=== PATIENT | female | born 1955 | race Caucasian/White ===

== ENCOUNTER 2017-05-01 20:18 | Observation (INO) | payer MEDICAID ==
[2017-05-01] MEDS ORDERED: Morphine 4 MG/ML VIAL ONE (21:02)
--- NOTE | 2017-05-01 21:04 | C.PDOC ---
History Of Present Illness 61 y/o F c PMHx kidney stones p/w R flank pain x 1 week. Patient has known kidney stone on R and is scheduled for stent placement by Urology tomorrow but pain has been intractible at home so came to ED. Denies fever, vomiting, diarrhea, dyspnea. Time Seen by Provider: 05/01/17 20:33 Chief Complaint (Nursing): Female Genitourinary Past Medical History Vital Signs: Last Vital Signs Temp 98 F 05/01/17 20:25 Pulse 90 05/01/17 20:25 Resp 18 05/01/17 20:25 BP 126/83 05/01/17 20:25 Pulse Ox 98 05/01/17 21:04 - Medical History PMH: Arthritis, Back Problems, HTN, Hyperlipidemia, Kidney Stones Family History: States: No Known Family Hx - Social History Hx Alcohol Use: No Hx Substance Use: No - Immunization History Hx Tetanus Toxoid Vaccination: No Hx Influenza Vaccination: Yes Hx Pneumococcal Vaccination: No Review Of Systems Except As Marked, All Systems Reviewed And Found Negative. Constitutional: Negative for: Fever Cardiovascular: Negative for: Chest Pain Physical Exam - Physical Exam Appears: In Acute Distress (secondary to pain) Skin: No Rash Head: Normacephalic Eye(s): bilateral: PERRL Oral Mucosa: Moist Neck: Supple Cardiovascular: Rhythm Regular Respiratory: Normal Breath Sounds Gastrointestinal/Abdominal: Soft, No Tenderness, No Distention Back: CVA Tenderness (R) Extremity: No Tenderness, No Swelling Pulses: Left Radial: Normal, Right Radial: Normal Neurological/Psych: Normal Speech, Normal Cognition Gait: Steady ED Course And Treatment - Laboratory Results Result Diagrams: 05/01/17 21:00 05/01/17 21:00 O2 Sat by Pulse Oximetry: 98 Medical Decision Making Medical Decision Making: Pain intractible. Dr. Mar will admit to observation for intractible pain. Dr. Schmid consult placed for stent placement. Disposition - Disposition Referrals: Giovanni Mar MD [Staff Provider] - Disposition: HOSPITALIZED Disposition Time: 21:30 Condition: FAIR Forms: [facility] (Dutch) - Clinical Impression Clinical Impression: Nephrolithiasis, Intractable pain
[2017-05-01 21:06] LABS: BASO # 0.1 K/uL (0.0-0.2); BASO % 0.8 % (0.0-2.0); EOS # 0.2 K/uL (0.0-0.7); EOS % 2.7 % (0.0-4.0); HEMATOCRIT 35.6 % (34.0-47.0); LYMPH # 3.1 K/uL (1.0-4.3); LYMPH % 34.5 % (20.0-40.0); MEAN CELL VOLUME 81.9 fL (81.0-99.0); MEAN CORPUSCULAR HEMOGLOBIN 27.6 pg (27.0-31.0); MEAN CORPUSCULAR HGB CONC 33.7 g/dL (33.0-37.0); MEAN PLATELET VOLUME 7.4 fL (7.2-11.7); MONO # 0.5 K/uL (0.0-0.8); MONO % 5.6 % (0.0-10.0); RED CELL DISTRIBUTION WIDTH 14.1 % (11.5-14.5); WHITE BLOOD COUNT 8.9 K/uL (4.8-10.8)
[2017-05-01 21:14] LABS: INR 1.2
[2017-05-01 21:15] LABS: CHLORIDE 105 mmol/L (98-107)
[2017-05-01 21:16] LABS: SODIUM 138 mmol/L (132-148)
[2017-05-01 21:18] LABS: ALB/GLOB RATIO 1.2 (1.0-2.1); AST/SGOT 22 U/L (14-36); BILIRUBIN,TOTAL 0.3 mg/dL (0.2-1.3); BLOOD UREA NITROGEN 13 mg/dL (7-17); CARBON DIOXIDE 26 mmol/L (22-30); GFR AFRICAN-AMERICAN > 60; TOTAL PROTEIN 6.9 g/dL (6.3-8.3)
[2017-05-01 21:19] LABS: ALKALINE PHOSPHATASE 66 U/L (38-126); ALT/SGPT 34 U/L (9-52); GLUCOSE,RANDOM 192 mg/dL (65-105)
[2017-05-01 21:34] LABS: RBC URINE 4 /hpf (0-3); URINE BILIRUBIN NEGATIVE (NEGATIVE); URINE BLOOD NEGATIVE (NEGATIVE); URINE COLOR Yellow (YELLOW); URINE GLUCOSE (UA) 3+ mg/dL (Normal); URINE KETONE NEGATIVE (NEGATIVE); URINE LEUKOCYTE ESTERASE 1+ Leu/uL (Negative); URINE PROTEIN NEGATIVE (NEGATIVE); URINE UROBILINOGEN NORMAL mg/dL (0.2-1.0); WBC URINE 25 /hpf (0-5)
[2017-05-02] MEDS: (Novolin R) Insulin Human Regular 100 units/ml vial SC SCH ×4 (07:46→22:01)
[2017-05-02] MEDS: Multiple Vitamins Tab PO SCH (09:14)
[2017-05-02] MEDS ORDERED: Enoxaparin 40 mg Syringe SC SCH (10:00)
[2017-05-02] MEDS ORDERED: Propofol 10 mg/ml Inj (20 ML) ONE (14:03)
[2017-05-02] MEDS ORDERED: Midazolam 2 MG/2 ML VIAL ONE (14:03)
[2017-05-02] MEDS ORDERED: HYDROmorphone 0.5 mg/0.5 ml ISec IVP PRN (14:42)
--- NOTE | 2017-05-02 15:15 | CP.PCM.HP ---
History of Present Illness - History of Present Illness History of Present Illness: CC : right flank pain x 1 week HPI: 61 y/o ge[place]ian F c PMHx kidney stones p/w R flank pain x 1 week along with dysuria, anorexia, malsie, fatigue, nausea.. Patient has known kidney stone on R and is scheduled for stent placement by Urology tomorrow but pain has been intractible at home so came to ED. Denies fever, vomiting, diarrhea, dyspnea Pt was seen in [facility] and was discharged then she had pain again and came back Present on Admission - Present on Admission Any Indicators Present on Admission: Yes Review of Systems - Review of Systems Systems not reviewed;Unavailable: Acuity of Condition - Constitutional Constitutional: Fatigue, Lethargy, Malaise, Weakness - EENT Eyes: absent: As Per HPI, Blind Spots, Blurred Vision, Change in Vision, Decreased Night Vision, Diplopia, Discharge, Dry Eye, Exophthalmos, Floaters, Irritation, Itchy Eyes, Loss of Peripheral Vision, Pain, Photophobia, Requires Corrective Lenses, Sees Flashes, Spots in Vision, Tunnel Vision, Other Visual Disturbances, Loss of Vision, Other Nose/Mouth/Throat: absent: As Per HPI, Epistaxis, Nasal Congestion, Nasal Discharge, Nasal Obstruction, Nasal Trauma, Nose Pain, Post Nasal Drip, Sinus Pain, Sinus Pressure, Bleeding Gums, Change in Voice, Dental Pain, Dry Mouth, Dysphagia, Halitosis, Hoarsness, Lip Swelling, Mouth Lesions, Mouth Pain, Odynophagia, Sore Throat, Throat Swelling, Tongue Swelling, Facial Pain, Neck Pain, Neck Mass, Other - Breasts Breasts: absent: As Per HPI, Change in Shape, Mass, Pain, Nipple Discharge, Nipple Inversion, Skin Changes, Swelling, Other - Cardiovascular Cardiovascular: absent: As Per HPI, Acrocyanosis, Chest Pain, Chest Pain at Rest , Chest Pain with Activity, Claudication, Diaphoresis, Dyspnea, Dyspnea on Exertion, Edema, Irregular Heart Rhythm, Pain Radiating to Arm/Neck/Jaw, Leg Edema, Leg Ulcers, Lightheadedness, Orthopnea, Palpitations, Paroxysmal Nocturnal Dyspnea, Pedal Edema, Radiating Pain, Rapid Heart Rate, Slow Heart Rate, Syncope, Other - Gastrointestinal Gastrointestinal: Abdominal Pain - Genitourinary Genitourinary: Difficulty Urinating, Dysuria, Flank Pain, Hx Renal/Bladder Calculi - Musculoskeletal Musculoskeletal: Back Pain, Muscle Weakness, Numbness - Integumentary Integumentary: absent: As Per HPI, Acne, Alopecia, Bleeding Lesions, Change in Hair, Change in Nails, Change in Pigmentation, Changing Lesions, Dry Skin, Erythema, Furuncle, Hirsutism, Lesions, New Lesions, Non-Healing Lesions, Photosensitivity, Pruritus, Rash, Skin Pain, Skin Ulcer, Sores, Striae, Swelling , Unusual Bruising, Wounds, Jaundice, Other Past Patient History - Infectious Disease Hx of Infectious Diseases: None - Past Medical History & Family History Past Medical History?: Yes - Past Social History Smoking Status: Never Smoked - CARDIAC Hx Hypertension: Yes - PULMONARY Other/Comment: sleep apnea,use BiPaP at home - RENAL Hx Kidney Stones: Yes - ENDOCRINE/METABOLIC Hx Diabetes Mellitus Type 2: Yes - MUSCULOSKELETAL/RHEUMATOLOGICAL Hx Falls: No - GENITOURINARY/GYNECOLOGICAL Hx Hematuria: Yes Hx Urinary Tract Infection: Yes - PSYCHIATRIC Hx Substance Use: No - SURGICAL HISTORY Other/Comment: "R shoulder repair" - ANESTHESIA Hx Anesthesia: Yes Hx Anesthesia Reactions: No Hx Malignant Hyperthermia: No Meds Allergies/Adverse Reactions: Allergies Allergy/AdvReac Type Severity Reaction Status Date / Time No Known Allergies Allergy Unverified 05/01/17 20:25 Physical Exam - Constitutional Appears: No Acute Distress Additional comments: in pain - Head Exam Head Exam: ATRAUMATIC, NORMAL INSPECTION, NORMOCEPHALIC - Eye Exam Eye Exam: EOMI, Normal appearance, PERRL Pupil Exam: NORMAL ACCOMODATION, PERRL - Respiratory Exam Respiratory Exam: Clear to Auscultation Bilateral, NORMAL BREATHING PATTERN - Cardiovascular Exam Cardiovascular Exam: REGULAR RHYTHM - GI/Abdominal Exam GI & Abdominal Exam: Normal Bowel Sounds, Soft. absent: Tenderness Additional comments: positive tenderness in right flank area - Exam Additional comments: positive CVA tenderness Results - Vital Signs Recent Vital Signs: Last Vital Signs Temp 97.5 F L 05/02/17 00:00 Pulse 82 05/02/17 00:00 Resp 20 05/02/17 00:00 BP 118/75 05/02/17 00:00 Pulse Ox 96 05/02/17 00:00 - Labs Result Diagrams: 05/01/17 21:00 05/01/17 21:00 Labs: Laboratory Results - last 24 hr 05/01/17 05/01/17 05/01/17 21:00 21:00 21:00 WBC 8.9 RBC 4.35 Hgb 12.0 Hct 35.6 MCV 81.9 MCH 27.6 MCHC 33.7 RDW 14.1 Plt Count 331 MPV 7.4 Neut % (Auto) 56.4 Lymph % (Auto) 34.5 [place] % (Auto) 5.6 Eos % (Auto) 2.7 Baso % (Auto) 0.8 Neut # 5.0 Lymph # 3.1 [place] # 0.5 Eos # 0.2 Baso # 0.1 PT 13.4 H INR 1.2 APTT 30 Sodium Potassium Chloride Carbon Dioxide Anion Gap BUN Creatinine Est GFR ( Amer) Est GFR (Non-Af Amer) POC Glucose (mg/dL) Random Glucose Calcium Total Bilirubin AST ALT Alkaline Phosphatase Total Protein Albumin Globulin Albumin/Globulin Ratio Urine Color Yellow Urine Clarity Clear Urine pH 6.0 Ur Specific [place] 1.016 Urine Protein Negative Urine Glucose (UA) 3+ H Urine Ketones Negative Urine Blood Negative Urine Nitrate Negative Urine Bilirubin Negative Urine Urobilinogen Normal Ur Leukocyte Esterase 1+ H Urine WBC (Auto) 25 H Urine RBC (Auto) 4 H Ur Squamous Epith Cells < 1 Blood Type Antibody Screen 05/01/17 05/01/17 05/02/17 21:00 21:00 07:25 WBC RBC Hgb Hct MCV MCH MCHC RDW Plt Count MPV Neut % (Auto) Lymph % (Auto) [place] % (Auto) Eos % (Auto) Baso % (Auto) Neut # Lymph # [place] # Eos # Baso # PT INR APTT Sodium 138 Potassium 4.0 Chloride 105 Carbon Dioxide 26 Anion Gap 12 BUN 13 Creatinine 0.4 L Est GFR ( Amer) > 60 Est GFR (Non-Af Amer) > 60 POC Glucose (mg/dL) 96 Random Glucose 192 H Calcium 9.0 Total Bilirubin 0.3 AST 22 ALT 34 Alkaline Phosphatase 66 Total Protein 6.9 Albumin 3.8 Globulin 3.2 Albumin/Globulin Ratio 1.2 Urine Color Urine Clarity Urine pH Ur Specific [place] Urine Protein Urine Glucose (UA) Urine Ketones Urine Blood Urine Nitrate Urine Bilirubin Urine Urobilinogen Ur Leukocyte Esterase Urine WBC (Auto) Urine RBC (Auto) Ur Squamous Epith Cells Blood Type A POSITIVE Antibody Screen Negative 05/02/17 11:35 WBC RBC Hgb Hct MCV MCH MCHC RDW Plt Count MPV Neut % (Auto) Lymph % (Auto) [place] % (Auto) Eos % (Auto) Baso % (Auto) Neut # Lymph # [place] # Eos # Baso # PT INR APTT Sodium Potassium Chloride Carbon Dioxide Anion Gap BUN Creatinine Est GFR ( Amer) Est GFR (Non-Af Amer) POC Glucose (mg/dL) 94 Random Glucose Calcium Total Bilirubin AST ALT Alkaline Phosphatase Total Protein Albumin Globulin Albumin/Globulin Ratio Urine Color Urine Clarity Urine pH Ur Specific [place] Urine Protein Urine Glucose (UA) Urine Ketones Urine Blood Urine Nitrate Urine Bilirubin Urine Urobilinogen Ur Leukocyte Esterase Urine WBC (Auto) Urine RBC (Auto) Ur Squamous Epith Cells Blood Type Antibody Screen Assessment & Plan (1) Intractable pain Status: Acute (2) Nephrolithiasis Status: Acute
--- NOTE | 2017-05-02 15:16 | RAD ---
PROCEDURE: Intraoperative Fluoroscopy. HISTORY: NEPHROLHITIASIS RIGHT SIDE FINDINGS: Fluoroscopic assistance was provided for cystoscopy and right ureteral stent placement.. Please refer to the operative report from total cumulative dose of 0.2 mGy per meter squared.
--- NOTE | 2017-05-02 21:55 | OP ---
PROCEDURE DATE: PREOPERATIVE DIAGNOSES: Severe renal colic responding to pain medicines, stone in the lower ureter with hydronephrosis and hydroureter. PROCEDURE: Cystoscopy, insertion of right stent. TYPE OF ANESTHESIA: General. DESCRIPTION OF PROCEDURE: While the patient is in lithotomy position, genitalia prepped and draped in sterile fashion. The patient on Rocephin. A #22 scope inserted, inspecting the bladder revealed no tumor or no stone. Right orifice localized and little bit narrow, not dilated. A sensor wire inserted and it went up to the upper collecting system. Double J stent 6-Telugu inserted up to the upper collecting system where it is coiled and down the bladder coiled. X-ray taken showed the stent in the right place. The scope removed after emptying the bladder. X-ray revealed the stent position and possible right ureteral stone. Guadalupe Mari MD
--- NOTE | 2017-05-02 21:58 | CON ---
DATE: HISTORY OF PRESENT ILLNESS: The patient is a 61-year-old [place] lady, who I know her for many years because of her multiple episode of right kidney stone, recently [facility] with severe renal colic and the CT scan revealed hydronephrosis and hydroureter with ureteral stones. The patient is in severe pain. She wants to have the stent, was transferred to [facility] under Dr. Mar. The patient had the last stent removed around 5-6 years ago and she was on Urocit-K. PHYSICAL EXAMINATION ABDOMEN: Revealed abdomen is soft. Right lower quadrant tenderness with right flank tenderness. No suprapubic fullness. No left flank tenderness. IMPRESSION: Right ureteral stone with obstruction and hydro. PLAN: Insertion of stent. Guadalupe Mari MD
[2017-05-03 01:22] VITALS: RESP 20; TEMP 98.3
[2017-05-03 07:50] VITALS: BP 108/69; PULSE 83; O2SAT 96
[2017-05-03 07:52] LABS: BASO % 0.5 % (0.0-2.0); EOS # 0.2 K/uL (0.0-0.7); EOS % 2.8 % (0.0-4.0); HEMATOCRIT 35.5 % (34.0-47.0); LYMPH % 23.5 % (20.0-40.0); MEAN CELL VOLUME 82.4 fL (81.0-99.0); MEAN PLATELET VOLUME 7.5 fL (7.2-11.7); MONO # 0.5 K/uL (0.0-0.8); MONO % 5.6 % (0.0-10.0); RED CELL DISTRIBUTION WIDTH 13.9 % (11.5-14.5); WHITE BLOOD COUNT 8.7 K/uL (4.8-10.8)
[2017-05-03] MEDS: (Novolin R) Insulin Human Regular 100 units/ml vial SC SCH ×2 (08:00→12:16)
[2017-05-03 08:19] LABS: CHLORIDE 103 mmol/L (98-107); SODIUM 136 mmol/L (132-148)
[2017-05-03 08:21] LABS: GFR AFRICAN-AMERICAN > 60
[2017-05-03 08:22] LABS: BLOOD UREA NITROGEN 11 mg/dL (7-17); CALCIUM 8.2 mg/dl (8.6-10.4); CARBON DIOXIDE 25 mmol/L (22-30); GLUCOSE,RANDOM 115 mg/dL (65-105)
[2017-05-03] MEDS: Multiple Vitamins Tab PO SCH (09:15)
[2017-05-03] MEDS ORDERED: Oxycodone/Acetaminophen 5/325 mg Tab PO ONE (10:05)
--- NOTE | 2017-05-03 14:41 | CP.PCM.PN ---
Subjective - Date & Time of Evaluation Date of Evaluation: 05/03/17 Time of Evaluation: 10:15 - Subjective Subjective: Patient seen today , denies any abdominal pain, N/V/D , fever, chills , c/o back pain relieved with pain medication s/p cystoscopy with stent # POD 1 A FEBRILE Objective - Vital Signs/Intake and Output Vital Signs (last 24 hours): Temp Pulse Resp BP Pulse Ox 98.3 F 83 20 108/69 96 05/03/17 07:47 05/03/17 07:47 05/03/17 07:47 05/03/17 07:47 05/03/17 07:47 Intake and Output: 05/03/17 05/03/17 06:59 18:59 Intake Total 940 660 Balance 940 660 - Medications Medications: Current Medications Aspirin (Aspirin Chewable) 81 mg PO DAILY [facility] Last Admin: 05/03/17 09:14 Dose: 81 mg Enoxaparin Sodium (Lovenox) 40 mg SC DAILY [facility] Gabapentin (Neurontin) 300 mg PO BID [facility] Last Admin: 05/03/17 09:15 Dose: 300 mg Ceftriaxone Sodium 1 gm/ (Sodium Chloride) 100 mls @ 100 mls/hr IVPB DAILY [facility] Last Admin: 05/03/17 09:48 Dose: 100 mls/hr Insulin Human Regular (Novolin R) 0 unit SC ACHS [facility] PRN Reason: Protocol Last Admin: 05/03/17 12:16 Dose: Not Given Losartan Potassium (Cozaar) 25 mg PO DAILY [facility] Last Admin: 05/03/17 09:15 Dose: 25 mg Metformin HCl (Glucophage) 850 mg PO TIDCC [facility] Last Admin: 05/03/17 12:15 Dose: 850 mg Morphine Sulfate (Morphine) 2 mg IVP Q4 PRN PRN Reason: Pain, severe (8-10) Last Admin: 05/03/17 09:10 Dose: 2 mg Multivitamins (Hexavitamin) 1 tab PO DAILY [facility] Last Admin: 05/03/17 09:15 Dose: 1 tab Pneumococcal Polyvalent Vaccine (Pneumovax 23 Vaccine) 0.5 ml IM .ONCE ONE Stop: 05/04/17 10:01 Rosuvastatin Calcium (Crestor) 10 mg PO HS [facility] Last Admin: 05/02/17 22:02 Dose: 10 mg - Labs Labs: 05/03/17 07:43 05/03/17 07:43 PT 13.4 SECONDS (9.7-12.2) H 05/01/17 21:00 INR 1.2 05/01/17 21:00 APTT 30 SECONDS (21-34) 05/01/17 21:00 - Constitutional Appears: Well, No Acute Distress - Respiratory Exam Respiratory Exam: Clear to Ausculation Bilateral, NORMAL BREATHING PATTERN - Cardiovascular Exam Cardiovascular Exam: REGULAR RHYTHM, +S1, +S2 - GI/Abdominal Exam GI & Abdominal Exam: Soft - Neurological Exam Neurological Exam: Alert, Awake, Oriented x3 Assessment and Plan - Assessment and Plan (Free Text) Assessment: a/p 61 yr old female admitted for Nephrolithiasis/ and intractable pain , s/p cystoscopy with stent R POD#1 Urine culture - negative seen by Dr. Mari today, cleared for discharge home from urology stand point an df/u with [facility] center on Nov [address] mar today, stable for discharge home today and f/u with Dr. Mar office in 1 week Discharge plan discussed with patient who understands and agrees with plan
--- NOTE | 2017-05-03 22:00 | CP.PCM.DIS ---
Provider - Provider Date of Admission: 05/01/17 21:24 Attending physician: Giovanni Mar MD Time Spent in preparation of Discharge (in minutes): 35 Diagnosis - Discharge Diagnosis (1) Intractable pain Status: Acute (2) Nephrolithiasis Status: Acute Hospital Course - Lab Results Lab Results: Micro Results 05/01/17 20:44 Urine,Clean Catch Urine Culture - Final No Growth (<1,000 CFU/ML) Most Recent Lab Values WBC 8.7 K/uL (4.8-10.8) 05/03/17 07:43 RBC 4.31 Mil/uL (3.80-5.20) 05/03/17 07:43 Hgb 12.1 g/dL (11.0-16.0) 05/03/17 07:43 Hct 35.5 % (34.0-47.0) 05/03/17 07:43 MCV 82.4 fL (81.0-99.0) 05/03/17 07:43 MCH 28.0 pg (27.0-31.0) 05/03/17 07:43 MCHC 34.0 g/dL (33.0-37.0) 05/03/17 07:43 RDW 13.9 % (11.5-14.5) 05/03/17 07:43 Plt Count 325 K/uL (130-400) 05/03/17 07:43 MPV 7.5 fL (7.2-11.7) 05/03/17 07:43 Neut % (Auto) 67.6 % (50.0-75.0) 05/03/17 07:43 Lymph % (Auto) 23.5 % (20.0-40.0) 05/03/17 07:43 [place] % (Auto) 5.6 % (0.0-10.0) 05/03/17 07:43 Eos % (Auto) 2.8 % (0.0-4.0) 05/03/17 07:43 Baso % (Auto) 0.5 % (0.0-2.0) 05/03/17 07:43 Neut # 5.9 K/uL (1.8-7.0) 05/03/17 07:43 Lymph # 2.0 K/uL (1.0-4.3) 05/03/17 07:43 [place] # 0.5 K/uL (0.0-0.8) 05/03/17 07:43 Eos # 0.2 K/uL (0.0-0.7) 05/03/17 07:43 Baso # 0.0 K/uL (0.0-0.2) 05/03/17 07:43 PT 13.4 SECONDS (9.7-12.2) H 05/01/17 21:00 INR 1.2 05/01/17 21:00 APTT 30 SECONDS (21-34) 05/01/17 21:00 Sodium 136 mmol/L (132-148) 05/03/17 07:43 Potassium 4.0 mmol/L (3.6-5.2) 05/03/17 07:43 Chloride 103 mmol/L (98-107) 05/03/17 07:43 Carbon Dioxide 25 mmol/L (22-30) 05/03/17 07:43 Anion Gap 12 (10-20) 05/03/17 07:43 BUN 11 mg/dL (7-17) 05/03/17 07:43 Creatinine 0.5 mg/dL (0.7-1.2) L 05/03/17 07:43 Est GFR ( Amer) > 60 05/03/17 07:43 Est GFR (Non-Af Amer) > 60 05/03/17 07:43 POC Glucose (mg/dL) 148 mg/dL (65-110) H 05/03/17 11:11 Random Glucose 115 mg/dL (65-105) H 05/03/17 07:43 Calcium 8.2 mg/dl (8.6-10.4) L 05/03/17 07:43 Total Bilirubin 0.3 mg/dL (0.2-1.3) 05/01/17 21:00 AST 22 U/L (14-36) 05/01/17 21:00 ALT 34 U/L (9-52) 05/01/17 21:00 Alkaline Phosphatase 66 U/L (38-126) 05/01/17 21:00 Total Protein 6.9 g/dL (6.3-8.3) 05/01/17 21:00 Albumin 3.8 g/dL (3.5-5.0) 05/01/17 21:00 Globulin 3.2 gm/dL (2.2-3.9) 05/01/17 21:00 Albumin/Globulin Ratio 1.2 (1.0-2.1) 05/01/17 21:00 Urine Color Yellow (YELLOW) 05/01/17 21:00 Urine Clarity Clear (Clear) 05/01/17 21:00 Urine pH 6.0 (5.0-8.0) 05/01/17 21:00 Ur Specific [place] 1.016 (1.003-1.030) 05/01/17 21:00 Urine Protein Negative mg/dL (NEGATIVE) 05/01/17 21:00 Urine Glucose (UA) 3+ mg/dL (Normal) H 05/01/17 21:00 Urine Ketones Negative mg/dL (NEGATIVE) 05/01/17 21:00 Urine Blood Negative (NEGATIVE) 05/01/17 21:00 Urine Nitrate Negative (NEGATIVE) 05/01/17 21:00 Urine Bilirubin Negative (NEGATIVE) 05/01/17 21:00 Urine Urobilinogen Normal mg/dL (0.2-1.0) 05/01/17 21:00 Ur Leukocyte Esterase 1+ [place]/uL (Negative) H 05/01/17 21:00 Urine WBC (Auto) 25 /hpf (0-5) H 05/01/17 21:00 Urine RBC (Auto) 4 /hpf (0-3) H 05/01/17 21:00 Ur Squamous Epith Cells < 1 /hpf (0-5) 05/01/17 21:00 Blood Type A POSITIVE 05/01/17 21:00 Antibody Screen Negative 05/01/17 21:00 - Hospital Course Hospital Course: a/p 61 yr old female admitted for Nephrolithiasis/ and intractable pain , s/p cystoscopy with stent R POD#1 Urine culture - negative seen by Dr. Gutierrez today, cleared for discharge home from urology stand point an df/u with [facility] center on May 17 seen by me today, stable for discharge home today and f/u with me in office in 1 week Discharge plan discussed with patient who understands and agrees with plan Discharge Exam - Head Exam Head Exam: ATRAUMATIC, NORMAL INSPECTION, NORMOCEPHALIC - Eye Exam Eye Exam: EOMI, Normal appearance, PERRL Pupil Exam: NORMAL ACCOMODATION, PERRL - Respiratory Exam Respiratory Exam: Clear to PA & Lateral, NORMAL BREATHING PATTERN - Cardiovascular Exam Cardiovascular Exam: REGULAR RHYTHM, +S1, +S2 - GI/Abdominal Exam GI & Abdominal Exam: Normal Bowel Sounds - Exam Additional comments: some renal pain post op Discharge Plan - Discharge Medications Prescriptions: Ciprofloxacin [Cipro] 500 mg PO BID 7 Days tab Tamsulosin [Flomax] 0.4 mg PO DAILY #30 cap Acetaminophen with Codeine [Tylenol with Codeine #3 Tablet] 1 each PO Q4 PRN # 20 tablet PRN Reason: Pain, Severe (8-10) - Follow Up Plan Condition: FAIR Disposition: HOME/ ROUTINE Instructions: Ciprofloxacin (By mouth), Acetaminophen/Codeine (By mouth), Tamsulosin (By mouth), Kidney Stones (DC) Additional Instructions: Please f/u with Dr. Mar office in 1 week Please f/u with stone center on nov 2 continue medication as per med. rec RX GIVEN BY DR. GUTIERREZ Referrals: Giovanni Mar MD [Staff Provider] -
[2017-05-04] MEDS ORDERED: Pneumococcal 23-Valent Vaccine IM ONE (10:00)
== END 2017-05-03 16:17 | disposition home or self-care (01) ==
LOC: SUPCPDRO 20:18 → C.ER 20:18 → C.3T 21:24
PROVIDERS: ADMIT Internal Medicine; ATTEND Internal Medicine
DX: N13.2 Hydronephrosis with renal and ureteral calculous obstruction (principal); I10 Essential (primary) hypertension; G47.30 Sleep apnea, unspecified; E78.5 Hyperlipidemia, unspecified; E11.9 Type 2 diabetes mellitus without complications
CPT/HCPCS: 36415; 52332; 80048; 80053; 81001; 82948; 85025; 85610; 85730; 86850; 86900; 87086; 96365; 96366; 96375; 96376; 99285; C1769; C2617; G0378; J0696; J1170; J2270

== ENCOUNTER 2017-06-12 08:34 | Day surgery (SDC) | payer MEDICAID ==
[2017-06-12] MEDS ORDERED: Midazolam 2 MG/2 ML VIAL ONE (10:48)
[2017-06-12] MEDS ORDERED: Propofol 10 mg/ml Inj (20 ML) ONE (10:49)
[2017-06-12] MEDS ORDERED: Iohexol 240 (50 ml) ONE (10:55)
[2017-06-12] MEDS ORDERED: Lidocaine 2% Jelly (Uro-Jet) ONE (10:55)
[2017-06-12] MEDS ORDERED: cefTRIAXone IV 1 gm in Dextros 50 ML IVPB ONE (10:55)
[2017-06-12] MEDS ORDERED: Lactated Ringer's 500 ML IV ONE (11:00)
[2017-06-12] MEDS ORDERED: Lactated Ringer's 1,000 ML IV ONE (11:30)
[2017-06-12] MEDS ORDERED: HYDROmorphone 0.5 mg/0.5 ml ISec IVP PRN (11:55)
[2017-06-12] MEDS ORDERED: Oxycodone/Acetaminophen 5/325 mg Tab PO PRN (12:08)
[2017-06-12 13:46] VITALS: RESP 16; TEMP 97.6
[2017-06-12 14:27] VITALS: BP 123/66; PULSE 88; O2SAT 97
--- NOTE | 2017-06-12 15:34 | RAD ---
HISTORY: URETERAL STONE COMPARISON: Abdominal radiographs dated 08/23/2016. FINDINGS: BOWEL: Normal. No obstruction. No free air. BONES: Normal. OTHER FINDINGS: Large left pelvic phlebolith, unchanged. IMPRESSION: No calcifications seen overlying the bilateral general urinary tracts.
--- NOTE | 2017-06-13 09:36 | RAD ---
PROCEDURE: Intraoperative Fluoroscopy. HISTORY: URETERAL STONE FINDINGS: Fluoroscopic assistance was provided for retrograde ureteronephrography. Please refer to the operative report from cumulative dose of 1.40 mGym2.
--- NOTE | 2017-06-18 20:12 | OP ---
PROCEDURE DATE: 06/12/2017 PREOPERATIVE DIAGNOSES: Right ureteral obstruction, stricture of the right ureter, possible residual stone. PROCEDURE: Cystoscopy, ureteral balloon dilatation and fragmenting of residual stone and basketing it, insertion of right stent. DESCRIPTION OF PROCEDURE: While the patient in lithotomy position, genitalia prepped and draped in sterile fashion. Patient was given Rocephin IV 1 gm. Cystoscopy revealed the bladder normal, no tumor, no stone. A Sensor wire inserted into the right side, it coiled, but after few maneuver, it moved up. The retrograde done which revealed dilatation of the upper ureter down to the pelvic brim where it is completely stuck. The balloon 6 cm dilator inserted to that point and inflated for 5 minutes. After that, the dilator removed. Ureteroscopy done which revealed the area of the stricture open and there were 2 stones on the top of it, those were fragmented and removed. After that, the dye which was hanging here, it was draining well. An 8-[place] inserted after removing the scope and positioned between the kidney and the bladder. X-ray taken. The patient tolerated the procedure well and transferred to the recovery in stable condition. Guadalupe Mari MD
== END 2017-06-12 14:43 | disposition home or self-care (01) ==
LOC: C.SDS 08:34
PROVIDERS: ATTEND Specialist
DX: N13.5 Crossing vessel and stricture of ureter without hydronephrosis (principal); N20.1 Calculus of ureter; E11.9 Type 2 diabetes mellitus without complications
CPT/HCPCS: 52353; 74000; 82365; 82948; 87086; 88300; C1769; C2617; J0696; J7120

== ENCOUNTER 2017-10-05 14:57 | Inpatient (IN) | payer MEDICAID ==
[2017-10-05 15:07] VITALS: BMI 24.3
[2017-10-05] MEDS ORDERED: Sodium Chloride 0.9% 1,000 ML IV ONE ×2 (15:20→18:44)
--- NOTE | 2017-10-05 15:22 | C.PDOC ---
History Of Present Illness 61 year old female with PMHx of HTN, DM, HLD presents the ED c/o body aches, fever, sore throat that started last night. Patient reports having a fever of 103 as well a a mild cough. Patient denies nausea, vomit, diarrhea, abdominal pain, dysuria, hematuria, back pain. Time Seen by Provider: 10/05/17 15:15 Chief Complaint (Nursing): Fever History Per: Patient History/Exam Limitations: no limitations Onset/Duration Of Symptoms: Days Current Symptoms Are (Timing): Still Present Location Of Pain: Throat Sick Contacts (Context): None Associated Symptoms: Fever, Sore Throat, Cough (mild), Myalgias Ear Symptoms: Bilateral: None Recent travel outside of the [place]: No Additional History Per: Patient Past Medical History Reviewed: Historical Data, Nursing Documentation, Vital Signs Vital Signs: Last Vital Signs Temp 98.0 F 10/05/17 20:10 Pulse 95 H 10/05/17 22:15 Resp 20 10/05/17 20:10 BP 106/68 10/05/17 20:10 Pulse Ox 95 10/05/17 20:10 - Medical History PMH: Anxiety, Arthritis, Back Problems, HTN, Hyperlipidemia, Kidney Stones, Chronic Kidney Disease, Sleep Apnea Surgical History: No Surg Hx Family History: States: Unknown Family Hx - Social History Hx Alcohol Use: No Hx Substance Use: No - Immunization History Hx Tetanus Toxoid Vaccination: No Hx Influenza Vaccination: Yes Hx Pneumococcal Vaccination: No Review Of Systems Except As Marked, All Systems Reviewed And Found Negative. Constitutional: Positive for: Fever, Malaise ENT: Positive for: Throat Pain Respiratory: Positive for: Cough Physical Exam - Physical Exam Appears: Non-toxic, No Acute Distress Skin: Normal Color, Warm, Dry Head: Atraumatic, Normacephalic Eye(s): bilateral: Normal Inspection Ear(s): Bilateral: Normal Nose: No Discharge Oral Mucosa: Moist Throat: Erythema, No Exudate Neck: Normal ROM, Supple Chest: Symmetrical Cardiovascular: Rhythm Regular, No Murmur Respiratory: Normal Breath Sounds, No Rales, No Rhonchi, No Wheezing Gastrointestinal/Abdominal: Soft, No Tenderness, No Guarding, No Rebound Extremity: Normal ROM, No Tenderness, No Swelling Neurological/Psych: Oriented x3 Gait: Steady ED Course And Treatment - Laboratory Results Result Diagrams: 10/05/17 15:36 10/05/17 22:24 ECG: Interpreted By Me, Viewed By Me ECG Rhythm: Sinus Tachycardia Rate From EC (BPM) O2 Sat by Pulse Oximetry: 98 (On RA) Pulse Ox Interpretation: Normal Medical Decision Making Medical Decision Making: Impression: body aches, fever, cough will eval for sepsis- labs iamging pendign Plan: * VBG * EKG * Labs * CXR * IV fluids * Tylenol 975 mg PO * UA pt reassesed symptoms improving. ct shows right sided hydro. no e/o of obstucting stone. case discussed with dr mar, requests admission. Disposition - Disposition Disposition: HOSPITALIZED Disposition Time: 05:00 Condition: FAIR - Clinical Impression Clinical Impression: Sepsis, Hydronephrosis - Scribe Statement The provider has reviewed the documentation as recorded by the Scribe Abel Wiley All medical record entries made by the Scribe were at my direction and personally dictated by me. I have reviewed the chart and agree that the record accurately reflects my personal performance of the history, physical exam, medical decision making, and the department course for this patient. I have also personally directed, reviewed, and agree with the discharge instructions and disposition. Decision To Admit - Pt Status Changed To: Hospital Disposition Of: Inpatient - Admit Certification Admit to Inpatient:: After my assessment, the patient will require hospitalization for at least two midnights. This is because of the severity of symptoms shown, intensity of services needed, and/or the medical risk in this patient being treated as an outpatient. - InPatient: Physician Admission Certification:: need iv antibitoics - . Bed Request Type: Telemetry Admitting Physician: Giovanni Mar Patient Diagnosis: Sepsis, Hydronephrosis
[2017-10-05] MEDS ORDERED: Sodium Chloride 0.9% 1,000 ML ONE ×2 (15:27→15:31)
[2017-10-05 15:45] LABS: BASO # 0.1 K/uL (0.0-0.2); BASO % 0.6 % (0.0-2.0); EOS % 0.3 % (0.0-4.0); HEMOGLOBIN 12.7 g/dL (11.0-16.0); LYMPH # 1.6 K/uL (1.0-4.3); LYMPH % 14.4 % (20.0-40.0); MEAN CORPUSCULAR HEMOGLOBIN 27.8 pg (27.0-31.0); MEAN CORPUSCULAR HGB CONC 33.9 g/dL (33.0-37.0); MEAN PLATELET VOLUME 7.3 fL (7.2-11.7); MONO # 0.8 K/uL (0.0-0.8); MONO % 7.2 % (0.0-10.0); NEUT # 8.5 K/uL (1.8-7.0); NEUT % 77.5 % (50.0-75.0); NRBC % 0.1 % (0.0-2.0); RBC 4.58 Mil/uL (3.80-5.20); RED CELL DISTRIBUTION WIDTH 14.1 % (11.5-14.5)
[2017-10-05 15:45] LABS: VENOUS BLOOD GAS BASE EXCESS 2.6 mmol/L (0.0-2.0); VENOUS BLOOD GAS PCO2 41 mmHg (40-60); VENOUS BLOOD GAS PO2 28 mm/Hg (30-55); VENOUS BLOOD PH 7.43 (7.32-7.43)
[2017-10-05 15:50] LABS: INFLUENZA A B NEGATIVE FOR FLU A/B (NEGATIVE)
[2017-10-05 15:54] LABS: INR 1.2; PROTHROMBIN TIME 13.9 SECONDS (9.7-12.2)
[2017-10-05 16:09] LABS: ALB/GLOB RATIO 1.4 (1.0-2.1); ALBUMIN 4.8 g/dL (3.5-5.0); ALT/SGPT 19 U/L (9-52); AST/SGOT 64 U/L (14-36); BLOOD UREA NITROGEN 10 mg/dL (7-17); CALCIUM 8.7 mg/dl (8.6-10.4); GFR AFRICAN-AMERICAN > 60; GFR NON-AFRICAN AMERICAN > 60
[2017-10-05 17:16] LABS: SQUAMOUS EPITHIAL < 1 /hpf (0-5); URINE BACTERIA RARE (<OCC); URINE BILIRUBIN NEGATIVE (NEGATIVE); URINE BLOOD 1+ (NEGATIVE); URINE CLARITY Clear (Clear); URINE COLOR Straw (YELLOW); URINE GLUCOSE (UA) NORMAL (Normal); URINE LEUKOCYTE ESTERASE NEG Leu/uL (Negative); URINE PROTEIN NEGATIVE (NEGATIVE); URINE UROBILINOGEN NORMAL mg/dL (0.2-1.0)
--- NOTE | 2017-10-05 17:23 | CT ---
PROCEDURE: CT Abdomen and Pelvis without intravenous contrast HISTORY: right flank pain COMPARISON: None. TECHNIQUE: Without contrast.. Contrast Dose: 0 Radiation dose: Total exam DLP = Total exam DLP = 465.42 mGy-cm. This CT exam was performed using one or more of the following dose reduction techniques: Automated exposure control, adjustment of the mA and/or kV according to patient size, and/or use of iterative reconstruction technique. FINDINGS: LOWER THORAX: Unremarkable. LIVER: Unremarkable. No gross lesion or ductal dilatation. GALLBLADDER AND BILE DUCTS: Unremarkable. PANCREAS: Unremarkable. No gross lesion or ductal dilatation. SPLEEN: Unremarkable. ADRENALS: Unremarkable. No mass. KIDNEYS AND URETERS: Severe right hydronephrosis, likely chronic, with marked right renal cortical thinning. . Right hydroureter. There is caliber change in the mid to distal right ureter without evidence of obstructing calculus. Rule out neoplasm versus stricture. No left hydronephrosis. No renal mass. No renal calculus. No perinephric fluid. VASCULATURE: Unremarkable. No aortic aneurysm. BOWEL: Unremarkable. No obstruction. No gross mural thickening. APPENDIX: Unremarkable. Normal appendix. PERITONEUM: Unremarkable. No free fluid. No free air. LYMPH NODES: Unremarkable. No enlarged lymph nodes. BLADDER: Unremarkable. REPRODUCTIVE: Normal uterus BONES: No acute fracture. OTHER FINDINGS: None. IMPRESSION: Severe right hydroureteronephrosis with transition in mid to distal right ureter. No evidence of obstructing calculus. Rule out neoplasm persists stricture. No other significant abnormality.
[2017-10-05] MEDS ORDERED: Piperacillin/Tazobact 3.375 GM in Sodium Chloride 100 ML IVPB STA (17:27)
[2017-10-05 17:46] LABS: ALB/GLOB RATIO 1.6 (1.0-2.1); ALBUMIN 3.7 g/dL (3.5-5.0); ALT/SGPT 33 U/L (9-52); AST/SGOT 17 U/L (14-36); BLOOD UREA NITROGEN 9 mg/dL (7-17); CALCIUM 7.8 mg/dl (8.6-10.4); GFR AFRICAN-AMERICAN > 60; GFR NON-AFRICAN AMERICAN > 60; LIPASE 105 U/L (23-300)
[2017-10-05] MEDS ORDERED: Potassium Chloride 20 mEq ER Tab PO STA (17:48)
[2017-10-05] MEDS ORDERED: Potassium Chloride 20 mEq ER Tab PO ONE (17:59)
[2017-10-05] MEDS ORDERED: Piperacillin/Tazobact 3.375 gm 100 ML IVPB ONE (17:59)
[2017-10-05] MEDS: Piperacillin/Tazobact 3.375 GM in Sodium Chloride 100 ML IVPB SCH (18:18)
[2017-10-05] MEDS: Sodium Chloride 0.9% 1,000 ML IV SCH (19:50)
[2017-10-05] MEDS: (Novolin R) Insulin Human Regular 100 units/ml vial SC SCH (21:27)
[2017-10-05 22:41] LABS: BLOOD UREA NITROGEN 10 mg/dL (7-17); CALCIUM 8.1 mg/dl (8.6-10.4); GFR AFRICAN-AMERICAN > 60; GFR NON-AFRICAN AMERICAN > 60
[2017-10-05] MEDS: Acetaminophen-Codeine 300/30 mg Tab PO PRN (23:01)
--- NOTE | 2017-10-05 23:43 | CP.PCM.HP ---
History of Present Illness - History of Present Illness History of Present Illness: 61 year old female with PMHx of HTN, DM, HLD presents the ED c/o body aches, fever, sore throat that started last night. Patient reports having a fever of 103 as well a a mild cough. Patient denies nausea, vomit, diarrhea, abdominal pain, dysuria, hematuria, back pain. Present on Admission - Present on Admission Any Indicators Present on Admission: No Past Patient History - Infectious Disease Hx of Infectious Diseases: None - Past Medical History & Family History Past Medical History?: Yes - Past Social History Smoking Status: Never Smoked - CARDIAC Hx Hypertension: Yes - PULMONARY Hx Sleep Apnea: Yes - NEUROLOGICAL Hx Neurological Disorder: No - HEENT Hx HEENT Problems: No - RENAL Hx Chronic Kidney Disease: Yes Hx Kidney Stones: Yes - ENDOCRINE/METABOLIC Hx Endocrine Disorders: Yes Hx Diabetes Mellitus Type 2: Yes - HEMATOLOGICAL/ONCOLOGICAL Hx Blood Disorders: No - INTEGUMENTARY Hx Dermatological Problems: No - MUSCULOSKELETAL/RHEUMATOLOGICAL Hx Arthritis: Yes - GASTROINTESTINAL Hx Gastrointestinal Disorders: No - GENITOURINARY/GYNECOLOGICAL Hx Genitourinary Disorders: Yes Hx Hematuria: Yes Hx Urinary Tract Infection: Yes - PSYCHIATRIC Hx Anxiety: Yes Hx Substance Use: No - SURGICAL HISTORY Hx Surgeries: Yes Other/Comment: "Right shoulder repair". HX: CYSTOSCOPY WITH INSERTION STENT- RIGHT(05/02/17) - ANESTHESIA Hx Anesthesia: Yes Hx Anesthesia Reactions: No Hx Malignant Hyperthermia: No Has any member of the family had a problem w/ anesthesia?: No Meds Home Medications: Home Medication List Medication Instructions Recorded Confirmed Type Amoxicillin/Clavulanate [Augmentin 1 tab PO Q12 #14 tab 10/06/17 Rx 875 MG-125 MG] Allergies/Adverse Reactions: Allergies Allergy/AdvReac Type Severity Reaction Status Date / Time No Known Allergies Allergy Verified 10/05/17 15:06 Results - Vital Signs Recent Vital Signs: Last Vital Signs Temp 98.0 F 10/05/17 20:10 Pulse 95 H 10/05/17 22:15 Resp 20 10/05/17 20:10 BP 106/68 10/05/17 20:10 Pulse Ox 98 10/05/17 23:14 - Labs Result Diagrams: 10/05/17 15:36 10/05/17 22:24 Labs: Laboratory Results - last 24 hr 03/10/05/17 10/05/17 15:36 15:36 15:36 WBC 11.0 H RBC 4.58 Hgb 12.7 Hct 37.5 MCV 82.0 MCH 27.8 MCHC 33.9 RDW 14.1 Plt Count 260 MPV 7.3 Neut % (Auto) 77.5 H Lymph % (Auto) 14.4 L [place] % (Auto) 7.2 Eos % (Auto) 0.3 Baso % (Auto) 0.6 Neut # (Auto) 8.5 H Lymph # (Auto) 1.6 [place] # (Auto) 0.8 Eos # (Auto) 0.0 Baso # (Auto) 0.1 PT 13.9 H INR 1.2 APTT 33 pO2 VBG pH VBG pCO2 VBG HCO3 VBG Total CO2 VBG O2 Sat (Calc) VBG Base Excess VBG Potassium Glucose Lactate Sodium 135 Potassium 7.1 H* D Chloride 101 Carbon Dioxide 24 Anion Gap 17 BUN 10 Creatinine 0.6 L Est GFR ( Amer) > 60 Est GFR (Non-Af Amer) > 60 POC Glucose (mg/dL) Random Glucose 109 H Calcium 8.7 Total Bilirubin 2.3 H AST 64 H D ALT 19 Alkaline Phosphatase 80 Troponin I < 0.0120 Total Protein 8.4 H Albumin 4.8 Globulin 3.6 Albumin/Globulin Ratio 1.4 Lipase Venous Blood Potassium Urine Color Urine Clarity Urine pH Ur Specific [place] Urine Protein Urine Glucose (UA) Urine Ketones Urine Blood Urine Nitrate Urine Bilirubin Urine Urobilinogen Ur Leukocyte Esterase Urine WBC (Auto) Urine RBC (Auto) Ur Squamous Epith Cells Ur Transition Epith Cell Urine Bacteria Influenza Typ A,B (EIA) Grp A Beta Strep Ag 10/05/17 10/05/17 10/05/17 15:40 15:42 17:05 WBC RBC Hgb Hct MCV MCH MCHC RDW Plt Count MPV Neut % (Auto) Lymph % (Auto) [place] % (Auto) Eos % (Auto) Baso % (Auto) Neut # (Auto) Lymph # (Auto) [place] # (Auto) Eos # (Auto) Baso # (Auto) PT INR APTT pO2 28 L VBG pH 7.43 VBG pCO2 41 VBG HCO3 25.8 VBG Total CO2 28.5 H VBG O2 Sat (Calc) 66.3 H VBG Base Excess 2.6 H VBG Potassium 3.6 Glucose 104 Lactate 1.0 Sodium 138.0 Potassium Chloride 104.0 Carbon Dioxide Anion Gap BUN Creatinine Est GFR ( Amer) Est GFR (Non-Af Amer) POC Glucose (mg/dL) Random Glucose Calcium Total Bilirubin AST ALT Alkaline Phosphatase Troponin I Total Protein Albumin Globulin Albumin/Globulin Ratio Lipase Venous Blood Potassium 3.6 Urine Color Straw Urine Clarity Clear Urine pH 7.0 Ur Specific [place] 1.005 Urine Protein Negative Urine Glucose (UA) Normal Urine Ketones Trace Urine Blood 1+ H Urine Nitrate Negative Urine Bilirubin Negative Urine Urobilinogen Normal Ur Leukocyte Esterase Neg Urine WBC (Auto) 2 Urine RBC (Auto) 5 H Ur Squamous Epith Cells < 1 Ur Transition Epith Cell < 1 Urine Bacteria Rare Influenza Typ A,B (EIA) Negative for flu a/b Grp A Beta Strep Ag Negative 10/05/17 10/05/17 10/05/17 17:26 20:56 22:24 WBC RBC Hgb Hct MCV MCH MCHC RDW Plt Count MPV Neut % (Auto) Lymph % (Auto) [place] % (Auto) Eos % (Auto) Baso % (Auto) Neut # (Auto) Lymph # (Auto) [place] # (Auto) Eos # (Auto) Baso # (Auto) PT INR APTT pO2 VBG pH VBG pCO2 VBG HCO3 VBG Total CO2 VBG O2 Sat (Calc) VBG Base Excess VBG Potassium Glucose Lactate Sodium 141 143 Potassium 3.1 L 3.8 Chloride 102 108 H Carbon Dioxide 23 24 Anion Gap 19 15 BUN 9 10 Creatinine 0.6 L 0.6 L Est GFR ( Amer) > 60 > 60 Est GFR (Non-Af Amer) > 60 > 60 POC Glucose (mg/dL) 118 H Random Glucose 98 128 H Calcium 7.8 L 8.1 L Total Bilirubin 0.8 AST 17 ALT 33 Alkaline Phosphatase 79 Troponin I Total Protein 6.0 L Albumin 3.7 Globulin 2.3 Albumin/Globulin Ratio 1.6 Lipase 105 Venous Blood Potassium Urine Color Urine Clarity Urine pH Ur Specific [place] Urine Protein Urine Glucose (UA) Urine Ketones Urine Blood Urine Nitrate Urine Bilirubin Urine Urobilinogen Ur Leukocyte Esterase Urine WBC (Auto) Urine RBC (Auto) Ur Squamous Epith Cells Ur Transition Epith Cell Urine Bacteria Influenza Typ A,B (EIA) Grp A Beta Strep Ag
[2017-10-06] MEDS: Piperacillin/Tazobact 3.375 GM in Sodium Chloride 100 ML IVPB SCH ×3 (00:54→12:15)
[2017-10-06] MEDS: Acetaminophen-Codeine 300/30 mg Tab PO PRN ×2 (05:08→09:20)
[2017-10-06] MEDS: (Novolin R) Insulin Human Regular 100 units/ml vial SC SCH ×2 (07:30→12:00)
[2017-10-06] MEDS: Sodium Chloride 0.9% 1,000 ML IV SCH ×2 (08:00→14:46)
--- NOTE | 2017-10-06 09:01 | RAD ---
PROCEDURE: CHEST RADIOGRAPH, 1 VIEW HISTORY: Chest pain COMPARISON: None available. FINDINGS: LUNGS: The lungs are well inflated and clear. PLEURA: No pneumothorax or pleural fluid seen. CARDIOVASCULAR: Normal. OSSEOUS STRUCTURES: No significant abnormalities. VISUALIZED UPPER ABDOMEN: Normal. OTHER FINDINGS: None. IMPRESSION: No active pulmonary disease.
[2017-10-06] MEDS ORDERED: Multiple Vitamins Tab PO SCH (10:00)
[2017-10-06] MEDS ORDERED: Enoxaparin 40 mg Syringe SC SCH (10:00)
[2017-10-06] MEDS ORDERED: Potassium Chloride 10 mEq ER Tab PO SCH (10:00)
[2017-10-06] MEDS ORDERED: Benzocaine/Menthol (Cepacol) Lozenge MT PRN (12:55)
[2017-10-06 15:41] VITALS: PULSE 99
[2017-10-06 15:53] VITALS: BP 107/64; RESP 18; TEMP 98.7; O2SAT 95
--- NOTE | 2017-10-06 16:02 | CP.PCM.PN ---
Subjective - Date & Time of Evaluation Date of Evaluation: 10/06/17 Time of Evaluation: 16:02 - Subjective Subjective: PT CLEARED FOR D/C HOME TODAY PER DR. CARPENTER. RX FOR AUGMENTIN. PT TO F/U WITH OUTPATIENT. SEE BELOW FOR D/C PLAN: -FOLLOW UP WITH DR. CARPENTER IN THE OFFICE IN 5-7 DAYS. -FOLLOW UP WITH DR. GUTIERREZ IN THE OFFICE IN 5-7 DAYS. -CONTINUE YOUR HOME MEDICATIONS USUAL. -CONTINUE AN ANTIBIOTIC, AUGMENTIN, FOR 1 WEEK AND EXACTLY PRESCRIBED PER DR. CARPENTER'S RECOMMENDATION. -FOR FURTHER QUESTIONS, CONTACT DR. CARPENTER'S OFFICE. Objective - Vital Signs/Intake and Output Vital Signs (last 24 hours): Temp Pulse Resp BP Pulse Ox 98.7 F 99 H 18 107/64 95 10/06/17 15:00 10/06/17 15:30 10/06/17 15:00 10/06/17 15:00 10/06/17 15:00 Intake and Output: 10/06/17 10/06/17 06:59 18:59 Intake Total 920 Balance 920 - Medications Medications: Current Medications Acetaminophen (Tylenol 325mg Tab) 650 mg PO Q6 PRN PRN Reason: Fever >100.4 F Acetaminophen/Codeine Phosphate (Tylenol/Codeine 300 Mg/30 Mg) 1 ea PO Q4 PRN PRN Reason: Pain, severe (8-10) Last Admin: 10/06/17 09:20 Dose: 1 ea Aspirin (Ecotrin) 81 mg PO DAILY [facility] Last Admin: 10/06/17 09:09 Dose: 81 mg Benzocaine/Menthol (Cepacol Sore Throat) 1 jeff MT Q6 PRN PRN Reason: Sore Throat Last Admin: 10/06/17 14:35 Dose: 1 jeff Docusate Sodium (Colace) 100 mg PO BID [facility] Enoxaparin Sodium (Lovenox) 40 mg SC DAILY [facility] Last Admin: 10/06/17 09:10 Dose: 40 mg Gabapentin (Neurontin) 600 mg PO DAILY [facility] Last Admin: 10/06/17 09:16 Dose: 600 mg Piperacillin Sod/Tazobactam (Sod 3.375 gm/ Sodium Chloride) 100 mls @ 200 mls/ hr IVPB Q6H [facility] PRN Reason: Protocol Last Admin: 10/06/17 12:15 Dose: 200 mls/hr Sodium Chloride (Sodium Chloride 0.9%) 1,000 mls @ 100 mls/hr IV .Q10H [facility] Last Admin: 10/06/17 14:46 Dose: Not Given Insulin Human Regular (Novolin R) 0 unit SC ACHS [facility] PRN Reason: Protocol Last Admin: 10/06/17 12:00 Dose: Not Given Metformin HCl (Glucophage) 850 mg PO TID [facility] Last Admin: 10/06/17 14:29 Dose: 850 mg Multivitamins (Hexavitamin) 1 tab PO DAILY [facility] Last Admin: 10/06/17 09:09 Dose: 1 tab Potassium Chloride (Klor-Con 10) 10 meq PO BID [facility] Last Admin: 10/06/17 09:10 Dose: 10 meq Rosuvastatin Calcium (Crestor) 10 mg PO HS [facility] Last Admin: 10/05/17 22:08 Dose: 10 mg Tamsulosin HCl (Flomax) 0.4 mg PO DAILY [facility] Last Admin: 10/06/17 09:10 Dose: 0.4 mg - Labs Labs: 10/05/17 15:36 10/05/17 22:24 PT 13.9 SECONDS (9.7-12.2) H 10/05/17 15:36 INR 1.2 10/05/17 15:36 APTT 33 SECONDS (21-34) 10/05/17 15:36
--- NOTE | 2017-10-07 14:02 | CP.PCM.DIS ---
Provider - Provider Date of Admission: 10/05/17 17:49 Attending physician: Giovanni Mar MD Time Spent in preparation of Discharge (in minutes): 45 Hospital Course - Lab Results Lab Results: Micro Results 10/05/17 17:45 Blood Blood Culture - Preliminary NO GROWTH AFTER 24 HOURS 10/05/17 17:30 Blood Blood Culture - Preliminary NO GROWTH AFTER 24 HOURS 10/05/17 Unknown Urine,Clean Catch Urine Culture - Final No Growth (<1,000 CFU/ML) 10/05/17 15:40 Throat Group A Strep Throat Culture - Final NO BETA STREP GROUP A ISOLATED. Most Recent Lab Values WBC 11.0 K/uL (4.8-10.8) H 10/05/17 15:36 RBC 4.58 Mil/uL (3.80-5.20) 10/05/17 15:36 Hgb 12.7 g/dL (11.0-16.0) 10/05/17 15:36 Hct 37.5 % (34.0-47.0) 10/05/17 15:36 MCV 82.0 fL (81.0-99.0) 10/05/17 15:36 MCH 27.8 pg (27.0-31.0) 10/05/17 15:36 MCHC 33.9 g/dL (33.0-37.0) 10/05/17 15:36 RDW 14.1 % (11.5-14.5) 10/05/17 15:36 Plt Count 260 K/uL (130-400) 10/05/17 15:36 MPV 7.3 fL (7.2-11.7) 10/05/17 15:36 Neut % (Auto) 77.5 % (50.0-75.0) H 10/05/17 15:36 Lymph % (Auto) 14.4 % (20.0-40.0) L 10/05/17 15:36 [place] % (Auto) 7.2 % (0.0-10.0) 10/05/17 15:36 Eos % (Auto) 0.3 % (0.0-4.0) 10/05/17 15:36 Baso % (Auto) 0.6 % (0.0-2.0) 10/05/17 15:36 Neut # (Auto) 8.5 K/uL (1.8-7.0) H 10/05/17 15:36 Lymph # (Auto) 1.6 K/uL (1.0-4.3) 10/05/17 15:36 [place] # (Auto) 0.8 K/uL (0.0-0.8) 10/05/17 15:36 Eos # (Auto) 0.0 K/uL (0.0-0.7) 10/05/17 15:36 Baso # (Auto) 0.1 K/uL (0.0-0.2) 10/05/17 15:36 PT 13.9 SECONDS (9.7-12.2) H 10/05/17 15:36 INR 1.2 10/05/17 15:36 APTT 33 SECONDS (21-34) 10/05/17 15:36 pO2 28 mm/Hg (30-55) L 10/05/17 15:42 VBG pH 7.43 (7.32-7.43) 10/05/17 15:42 VBG pCO2 41 mmHg (40-60) 10/05/17 15:42 VBG HCO3 25.8 mmol/L 10/05/17 15:42 VBG Total CO2 28.5 mmol/L (22-28) H 10/05/17 15:42 VBG O2 Sat (Calc) 66.3 % (40-65) H 10/05/17 15:42 VBG Base Excess 2.6 mmol/L (0.0-2.0) H 10/05/17 15:42 VBG Potassium 3.6 mmol/L (3.6-5.2) 10/05/17 15:42 Sodium 138.0 mmol/l (132-148) 10/05/17 15:42 Chloride 104.0 mmol/L (98-107) 10/05/17 15:42 Glucose 104 mg/dl (65-105) 10/05/17 15:42 Lactate 1.0 mmol/L (0.7-2.1) 10/05/17 15:42 Sodium 143 mmol/L (132-148) 10/05/17 22:24 Potassium 3.8 mmol/L (3.6-5.2) 10/05/17 22:24 Chloride 108 mmol/L (98-107) H 10/05/17 22:24 Carbon Dioxide 24 mmol/L (22-30) 10/05/17 22:24 Anion Gap 15 (10-20) 10/05/17 22:24 BUN 10 mg/dL (7-17) 10/05/17 22:24 Creatinine 0.6 mg/dL (0.7-1.2) L 10/05/17 22:24 Est GFR ( Amer) > 60 10/05/17 22:24 Est GFR (Non-Af Amer) > 60 10/05/17 22:24 POC Glucose (mg/dL) 122 mg/dL (65-110) H 10/06/17 16:15 Random Glucose 128 mg/dL (65-105) H 10/05/17 22:24 Calcium 8.1 mg/dl (8.6-10.4) L 10/05/17 22:24 Total Bilirubin 0.8 mg/dL (0.2-1.3) 10/05/17 17:26 AST 17 U/L (14-36) 10/05/17 17:26 ALT 33 U/L (9-52) 10/05/17 17:26 Alkaline Phosphatase 79 U/L (38-126) 10/05/17 17:26 Troponin I < 0.0120 ng/mL (0.00-0.120) 10/05/17 15:36 Total Protein 6.0 g/dL (6.3-8.3) L 10/05/17 17:26 Albumin 3.7 g/dL (3.5-5.0) 10/05/17 17:26 Globulin 2.3 gm/dL (2.2-3.9) 10/05/17 17:26 Albumin/Globulin Ratio 1.6 (1.0-2.1) 10/05/17 17:26 Lipase 105 U/L (23-300) 10/05/17 17:26 Venous Blood Potassium 3.6 mmol/L (3.6-5.2) 10/05/17 15:42 Urine Color Straw (YELLOW) 10/05/17 17:05 Urine Clarity Clear (Clear) 10/05/17 17:05 Urine pH 7.0 (5.0-8.0) 10/05/17 17:05 Ur Specific [place] 1.005 (1.003-1.030) 10/05/17 17:05 Urine Protein Negative mg/dL (NEGATIVE) 10/05/17 17:05 Urine Glucose (UA) Normal mg/dL (Normal) 10/05/17 17:05 Urine Ketones Trace mg/dL (NEGATIVE) 10/05/17 17:05 Urine Blood 1+ (NEGATIVE) H 10/05/17 17:05 Urine Nitrate Negative (NEGATIVE) 10/05/17 17:05 Urine Bilirubin Negative (NEGATIVE) 10/05/17 17:05 Urine Urobilinogen Normal mg/dL (0.2-1.0) 10/05/17 17:05 Ur Leukocyte Esterase Neg [place]/uL (Negative) 10/05/17 17:05 Urine WBC (Auto) 2 /hpf (0-5) 10/05/17 17:05 Urine RBC (Auto) 5 /hpf (0-3) H 10/05/17 17:05 Ur Squamous Epith Cells < 1 /hpf (0-5) 10/05/17 17:05 Ur Transition Epith Cell < 1 /hpf (0-3) 10/05/17 17:05 Urine Bacteria Rare (<OCC) 10/05/17 17:05 Influenza Typ A,B (EIA) Negative for flu a/b (NEGATIVE) 10/05/17 15:40 Grp A Beta Strep Ag Negative (NEGATIVE) 10/05/17 15:40 Discharge Plan - Discharge Medications Prescriptions: Amoxicillin/Clavulanate [Augmentin 875 MG-125 MG] 1 tab PO Q12 #14 tab - Follow Up Plan Condition: FAIR Disposition: HOME/ ROUTINE Instructions: Sore Throat, Adult (DC), Amoxicillin and Clavulanate, Sepsis (DC) Additional Instructions: -FOLLOW UP WITH DR. MAR IN THE OFFICE IN 5-7 DAYS. -FOLLOW UP WITH DR. GUTIERREZ IN THE OFFICE IN 5-7 DAYS. -CONTINUE YOUR HOME MEDICATIONS USUAL. -CONTINUE AN ANTIBIOTIC, AUGMENTIN, FOR 1 WEEK AND EXACTLY PRESCRIBED PER DR. MAR'S RECOMMENDATION. -FOR FURTHER QUESTIONS, CONTACT DR. MAR'S OFFICE. Referrals: Giovanni Mar MD [Staff Provider] - Guadalupe Gutierrez MD [Staff Provider] -
--- NOTE | 2017-10-09 12:53 | CARD ---
APPROVED REPORT EKG Measurement Heart [id number] <Conclusion> Sinus tachycardia Possible Inferior infarct, age undetermined Cannot rule out Anterior infarct, age undetermined Abnormal ECG
--- NOTE | 2017-10-25 14:50 | DS ---
ADMITTING DIAGNOSIS: Abdominal pain. DISCHARGE DIAGNOSES: 1. Hydronephrosis due to obstructive uropathy due to nephrolithiasis. 2. Type 2 diabetes. 3. Hypertension. 4. Hyperlipidemia. 5. Dehydration. HOSPITAL COURSE: This is an elderly [place] female with history of type 2 diabetes, hypertension, prior kidney stones. She came in because of abdominal pain. Ultrasound showed hydronephrosis. She has prior stones in the kidney and patient will need outpatient followup with Dr. Mari. Patient did well with pain medications, IV antibiotics. Cultures were done, which were negative. PHYSICAL EXAMINATION: VITAL SIGNS: She is afebrile. LUNGS: Clear. CARDIOVASCULAR SYSTEM: S1 and S2, regular. ABDOMEN: Soft. DISCHARGE DIAGNOSES: 1. Hydronephrosis due to obstructive uropathy. 2. Nephrolithiasis. 3. Type 2 diabetes. 4. Hypertension. PLAN: Discharged patient. Follow up with Dr. Mari. iGovanni Mar MD
== END 2017-10-06 16:50 | disposition home or self-care (01) | DRG 323 ==
LOC: C.ER 14:57 → C.9E 17:49 → C.6T 19:29
PROVIDERS: ADMIT Internal Medicine; ATTEND Internal Medicine
DX: N13.2 Hydronephrosis with renal and ureteral calculous obstruction (principal); E11.22 Type 2 diabetes mellitus with diabetic chronic kidney disease; E86.0 Dehydration; F41.9 Anxiety disorder, unspecified; N18.9 Chronic kidney disease, unspecified; Z87.442 Personal history of urinary calculi; J02.9 Acute pharyngitis, unspecified; E78.5 Hyperlipidemia, unspecified; I12.9 Hypertensive chronic kidney disease with stage 1 through stage 4 chronic kidney disease, or unspecified chronic kidney disease

== ENCOUNTER 2018-10-17 15:56 | Outpatient (CLI) | payer MEDICAID | END 2018-10-17 15:57 | disposition home or self-care (01) | LOC: C.CTH 15:56 | DX: J32.0 Chronic maxillary sinusitis (principal); J32.2 Chronic ethmoidal sinusitis; J34.2 Deviated nasal septum ==